=== PATIENT | female | born 1995 | race African-American/Black ===

== ENCOUNTER 2019-06-09 23:53 | Emergency (ER) | payer OTHER ==
[~2019-06-09] VITALS: Ht 160 cm; Wt 70.9 kg
[~2019-06-09 23:53] MED LIST: ZOFRAN ODT4 MG/UDTAB PO
[2019-06-10] VITALS: Ht 160 cm; Wt 70.9 kg
[2019-06-10] MEDS ORDERED: PRENAVITE1 TAB PO (00:01)
[2019-06-10 00:28] LABS: BILIRUBIN NEGATIVE (NEGATIVE); GLUCOSE NEGATIVE (NEGATIVE); KETONE NEGATIVE (NEGATIVE); NITRITE NEGATIVE (NEGATIVE); UROBILINOGEN NORMAL (NORMAL)
[2019-06-10 01:18] VITALS: BP 125/56
== END 2019-06-10 01:20 | disposition home or self-care (01) ==
LOC: D.ER 23:53
PROVIDERS: Family Medicine
DX: O26.892 Other specified pregnancy related conditions, second trimester (principal); Z3A.19 19 weeks gestation of pregnancy; R10.9 Unspecified abdominal pain; V89.2XXA Person injured in unspecified motor-vehicle accident, traffic, initial encounter; Y93.9 Activity, unspecified; Y92.9 Unspecified place or not applicable

== ENCOUNTER → 2019-10-28 16:30 | Outpatient (CLI) | payer OTHER ==
[2019-06-10] VITALS: BMI 27.6
[~2019-10-28 16:30] MED LIST changes: +PRENAVITE1 TAB PO
== END | disposition home or self-care (01) ==
LOC: D.LDO 16:30
PROVIDERS: ATTEND Obstetrics & Gynecology
DX: O26.893 Other specified pregnancy related conditions, third trimester (principal); Z3A.38 38 weeks gestation of pregnancy; M54.5 Low back pain

== ENCOUNTER 2019-11-09 11:51 | Inpatient (IN) | payer OTHER ==
[~2019-11-09] VITALS: Ht 160 cm; Wt 84.5 kg
[2019-11-09 13:02] LABS: HEMATOCRIT 35.5 % (36.0-48.0); HEMOGLOBIN 11.3 g/dL (12-16); MCH 29.5 pg (26.0-34.0); MCHC 31.8 g/dL (31.0-37.0); MCV 92.7 fL (80.0-100.0); MEAN PLATELET VOLUME 11.6 fL (7.4-10.4); RBC 3.83 10x6/uL (4.00-5.40); RDW 13.9 % (11.5-14.5)
[2019-11-09 13:15] LABS: UDS - AMPHET NEGATIVE QUAL (NEGATIVE); UDS - BARB NEGATIVE QUAL (NEGATIVE); UDS - BENZO NEGATIVE QUAL (NEGATIVE); UDS - COCAINE NEGATIVE QUAL (NEGATIVE); UDS - OPIATE NEGATIVE QUAL (NEGATIVE); UDS - PCP NEGATIVE QUAL (NEGATIVE); UDS - THC NEGATIVE QUAL (NEGATIVE)
[2019-11-09 16:11] VITALS: BP 130/69; Ht 160 cm; Wt 84.5 kg
--- NOTE | 2019-11-09 18:38 | MORECARE ---
CASE MANAGEMENT DISCHARGE SUMMARY PATIENT: LELIA BRADY UNIT: [id number] ADM DATE: 11/09/19 AGE: 24 : [birth year] SEX: F ROOM/BED: D.1277 AUTHOR: TIFFANY SNYDER PHYSICIAN: REFERRING PHYSICIAN: ABDULAZIZ AIKEN DO DATE OF SERVICE: 11/09/19 Discharge Plan Patient Name: LELIA BRADY Facility: [facility]:[place] : 1995 Planned Disposition: Home Anticipated Discharge Date: Discharge Date: Expected LOS: Initial Reviewer: [email or web address] Initial Review Date: 11/09/2019 Generated: 11/09/19 7:38 pm Patient Name: LELIA BRADY Page 22831 at 1838 All edits/amendments must be made on the electronic document DICTATION DATE: 11/09/191837 POLICE COMMUNICATIONS OPERATOR: JONO 11/09/191837 RPT#: [id number] DC DATE: STATUS: ADM IN [facility] [address] [place] [address] END OF REPORT
[2019-11-10 07:15] LABS: RAPID PLASMA REAGIN Non Reactive (Non Reactive)
--- NOTE | 2019-11-10 19:15 | NUR ---
REPORT GIVEN BY DIANNE REBOLLEDO RN
[2019-11-10 20:00] VITALS: BP 118/72
--- NOTE | 2019-11-10 20:00 | NUR ---
PT ASSESSMENT COMPLETE. HEART SOUND REGULAR WITHOUT MURMUR. LUNGS CLEAR. FUNDUS IS FIRM. BLEEDING SMALL. PT TOOK A SHOWER TONIGHT. SHE IS AMBULATING WELL. SHE HAS AN ICE PACK IN PLACE IN HER [place] AREA. BOWEL SONDS HEARD. NO C/O AT THIS TIME. AT BEDSIDE. BOTH PARENTS ARE HOLDING AND LOVING ON THE BABY.
--- NOTE | 2019-11-10 21:10 | NUR ---
PT C/O ACHING IN HER [place] AREA. SHE WAS GIVEN MOTRIN 600 MG PO. SHE WAS ASKING ABOUT SNACKS. I TOOK IN VANILLA PUDDING. I ASKED HER BABY DADXENA IF HE HAD EATEN. THE TWO HAD SHARED HER DINNER TRAY AND THEY WERE BOTH HUNGRY. I TOOK IN SANDWICHES FOR THEM TO EAT. BRYANNA RN NURSERY NURSE CAME IN TO TALK TO THE NEW PARENTS ABOUT ANY QUESTIONS THEY HAD.
--- NOTE | 2019-11-10 22:00 | NUR ---
SWATI JOLLY MADE SOME ICE PACKS WITH PT PAD TO FIT MORE COMFORTABLY TO PT BODY. THIS IS WORKING WELL FOR HER.
--- NOTE | 2019-11-10 23:00 | NUR ---
FEEDING THE BABY. RN IN ROOM DOING SOME TEACHING.
--- NOTE | 2019-11-11 | NUR ---
RESTING QUIETLY. NO C/O OR NEEDS.
--- NOTE | 2019-11-11 02:20 | NUR ---
BABY IN ROOM FOR FEED. NO C/O OR PROBLEMS
--- NOTE | 2019-11-11 04:28 | NUR ---
PT AND FOB ARE SLEEPING SOUNDLY. NO C/O OR NEEDS
--- NOTE | 2019-11-11 06:21 | NUR ---
PT AND FOB SLEEPING SOUNDLY. NO C/O OR NEEDS AT THIS TIME.
[2019-11-11 07:16] LABS: BASOPHILS 0.1 % (0-2); EOSINOPHILS 0.1 % (0-7); HEMATOCRIT 34.8 % (36.0-48.0); HEMOGLOBIN 10.9 g/dL (12-16); IMMATURE GRANULOCYTES 0.3 % (0-5); LYMPHOCYTES 10.2 % (15-50); MCH 29.4 pg (26.0-34.0); MCHC 31.3 g/dL (31.0-37.0); MCV 93.8 fL (80.0-100.0); MEAN PLATELET VOLUME 11.6 fL (7.4-10.4); MONOCYTES 5.9 % (2-11); NEUTROPHILS 83.4 % (40-80); PLATELET COUNT 150 10x3/uL (130-400); RBC 3.71 10x6/uL (4.00-5.40); RDW 14.4 % (11.5-14.5)
[2019-11-11 07:19] LABS: WBC 15.2 10x3/uL (4.8-10.8)
--- NOTE | 2019-11-11 08:20 | NUR ---
PT IS SITTING UP ON THE SIDE OF THE BED, EATING BREAKFAST. DENIES NEEDING PAIN MEDICAITON, AND DENIES ALL OTHER NEEDS AT THIS TIME. SIG OTHER AT BEDSIDE.
[2019-11-11 10:12] VITALS: BP 126/77
--- NOTE | 2019-11-11 10:45 | NUR ---
DR. AIKEN ON UNIT, ROUNDING ON PATIENTS. DR. AIKEN WANTS TO CANCEL TODAY'S 1500 CBC, AND CHANGE TO CBC IN THE AM AND DR. MARIE WILL ROUND ON PT IN AM.
--- NOTE | 2019-11-11 12:30 | NUR ---
DIETARY SERVES REGULAR LUNCH TRAY. SIG OTHER REQUESTS GUEST TRAY, ORDERED.
--- NOTE | 2019-11-11 12:52 | NUR ---
ice pack and cup of water provided per pt request, pt asking about "something for constipation" stating she has not had a bowel movement since day before yesterday, relayed no orders in chart for stimulant medication at this time, pt states she will try walking in halls and drinking more water, encouraged fiber-rich foods as tolerated, pt states understanding, encouraged pt to notify rn if desires stimulant and will contact md for orders. pt states understanding.
--- NOTE | 2019-11-11 15:00 | NUR ---
PT AMBULATORY IN ROOM, TO BR, PERICARE DONE PER SELF, PT USING DERMAPLAST SPRAY WITH PERICARE, STATES "THAT REALLY DOES HELP". PT DENIES ALL OTHER NEEDS AT THIS TIME. CONTINUES TO DENY HEAVY BLEEDING OR PASSING CLOTS. SR UP X2, CALL LIGHT AND PHONE WITHIN REACH.
--- NOTE | 2019-11-11 17:30 | NUR ---
PT REQUESTS MORE BETADINE, PERIPADS/PANTIES AND ANOTHER SPRITE TO DRINK, PROVIDED. PT IS SITTING UP ON THE SIDE OF THE BED EATING SUPPER, SIG OTHER AT BEDSIDE. PT DENIES ALL OTHER NEEDS AT THIS TIME. SEE EMAR FOR ALL MEDS ADM BY THIS RN. SRUP X2, CALL LIGHT AND PHONE WITHIN REACH.
[2019-11-11 19:27] VITALS: BP 128/93
--- NOTE | 2019-11-11 19:27 | NUR ---
SHIFT ASSESSMENT COMPLETED, SEE FLOWSHEET.
--- NOTE | 2019-11-11 19:43 | NUR ---
ICE CREAM PROVIDED PER PT REQUEST. NO FURTHER NEEDS IDENTIFIED. WILL CONTINUE TO MONITOR.
--- NOTE | 2019-11-11 20:55 | NUR ---
CALLED TO ROOM BY PATIENT AT THIS TIME, TAPE ON IV SITE NOTED TO BE LOOSE. IV RETAPED. NO FURTHER NEEDS IDENTIFIED. WILL CONTINUE TO MONITOR.
--- NOTE | 2019-11-11 22:47 | NUR ---
PATIENT SITTING UP IN BED HOLDING INFANT. DENIES NEEDS AT THIS TIME. WILL CONTINUE TO MONITOR.
--- NOTE | 2019-11-11 23:15 | NUR ---
INFANT TO NBN VIA OPEN CRIB. MOTHER DENIES NEEDS AT THIS TIME.
--- NOTE | 2019-11-12 02:38 | NUR ---
PT SLEEPING WITH EVEN RESPIRATIONS. NO DISTRESS NOTED. BED REMAINS LOCKED IN LOW POSITION, CALL ANGELES AND TRAY TABLE IN REACH. WILL CONTINUE TO MONITOR.
--- NOTE | 2019-11-12 05:13 | NUR ---
INFANT TO MOTHERS ROOM VIA OPEN CRIB PER NURSERY RN. PT DENIES NEEDS AT THIS TIME.
[2019-11-12 05:26] LABS: BASOPHILS 0.1 % (0-2); EOSINOPHILS 0.6 % (0-7); HEMATOCRIT 31.3 % (36.0-48.0); HEMOGLOBIN 9.7 g/dL (12-16); IMMATURE GRANULOCYTES 0.4 % (0-5); LYMPHOCYTES 13.9 % (15-50); MCH 29.2 pg (26.0-34.0); MCV 94.3 fL (80.0-100.0); MEAN PLATELET VOLUME 11.3 fL (7.4-10.4); PLATELET COUNT 154 10x3/uL (130-400); RBC 3.32 10x6/uL (4.00-5.40); RDW 14.1 % (11.5-14.5); WBC 13.7 10x3/uL (4.8-10.8)
[2019-11-12 07:25] VITALS: BP 128/61
--- NOTE | 2019-11-12 14:36 | NUR ---
PT STATES WOULD LIKE MORE DERMAPLAST BEFORE DISCHARGE TO ROOM IN. ROOMING IN PAPERS PROVIDED.
--- NOTE | 2019-11-12 15:04 | NUR ---
PT COMPLETES ROOMING IN FORMS. PT STATES THAT AFTER DISCHARGE SHE IS GOING TO GO HOME AND GET CLEAN CLOTHES AND WILL BE RIGHT BACK. DISCHARGE INST VERBAL AND WRITTEN GIVEN. NO SCRIPTS TO GIVE BUT PT INFORMED THAT MAY TAKE TYLENOL OR IBUPROFEN DIRECTED ON LABEL. SEE ALSO SIGNED INST SHEET. PFW POST INSTRUCTIONS AND AWHONN GUIDELINES FORM GIVEN.
--- NOTE | 2019-11-13 08:52 | MORECARE ---
CASE MANAGEMENT DISCHARGE SUMMARY PATIENT: LELIA BRADY UNIT: [id number] ADM DATE: 11/09/19 AGE: 24 : [birth year] SEX: F ROOM/BED: D.1278 AUTHOR: TIFFANY SNYDER PHYSICIAN: REFERRING PHYSICIAN: ABDULAZIZ AIKEN DO DATE OF SERVICE: 11/13/19 Discharge Plan Patient Name: LELIA BRADY [facility] [facility] 1995 Planned Disposition: Home Anticipated Discharge Date: Discharge Date: 11/12/2019 Expected LOS: Initial Reviewer: [email or web address] Initial Review Date: 11/09/2019 Generated: 11/13/19 9:52 am Last DP export: 11/09/19 5:38 p Patient Name: LELIA BRADY Page 80103 at 0852 All edits/amendments must be made on the electronic document DICTATION DATE: 11/13/19 0852 GAMES DEALER: JONO 11/13/19 0852 RPT#: [id number] DC DATE:11/12/19 STATUS: DIS IN [facility] [address] [place] [address] END OF REPORT
== END 2019-11-12 15:19 | disposition home or self-care (01) | DRG 819 ==
LOC: D.LD 11:51
PROVIDERS: ADMIT Student in an Organized Health Care Education/Training Program; ATTEND Student in an Organized Health Care Education/Training Program
PROC: 0KQM0ZZ Repair Perineum Muscle, Open Approach (ICD-10-PCS; principal; 2019-11-10)
PROC: 10E0XZZ Delivery of Products of Conception, External Approach (ICD-10-PCS; 2019-11-10)
DX: O36.8330 Maternal care for abnormalities of the fetal heart rate or rhythm, third trimester, not applicable or unspecified (principal); Z3A.40 40 weeks gestation of pregnancy; O70.1 Second degree perineal laceration during delivery